=== PATIENT | male | born 1960 | race Caucasian/White ===

== ENCOUNTER → 2020-12-17 | Outpatient (CLI) | payer OTHER ==
[~2020-12-17] MED LIST: ATHLETIC FOOT C30 GM TP; BACTROBAN OINT22 GM EXT; BRILINTA90 MG PO; CLEOCIN HCL300 MG PO; COREG 12.5MG12.5 MG PO; FLOMAX0.4 MG PO; GLIPIZIDE10 MG PO; IBUPROFEN600 MG PO; IBUPROFEN800 MG PO; LIPITOR TAB 2020 MG PO; NORCO 5-325 TA1 EACH PO; PENVEE K 500 M500 MG PO; ROPINIROLE HC0.25 MG PO; TYLENOL W/CODEIN1 EA PO; VIBRAMYCIN100 MG PO; ZOLOFT50 MG PO
== END ==
LOC: HEART 5 11-12 08:45
DX: I20.9 Angina pectoris, unspecified (principal); I08.3 Combined rheumatic disorders of mitral, aortic and tricuspid valves
CPT/HCPCS: 78452; 93306; A9502; J2785

== ENCOUNTER → 2021-01-14 | Outpatient (CLI) | payer OTHER | LOC: SLEEP 15:24 | DX: G47.33 Obstructive sleep apnea (adult) (pediatric) (principal) | CPT/HCPCS: 95810 ==

== ENCOUNTER 2021-03-10 15:26 | Emergency (ER) | payer OTHER ==
[~2021-03-10] VITALS: Ht 182.9 cm; Wt 93.0 kg
== END 2021-03-10 19:16 | disposition home or self-care (01) ==
LOC: ER1 15:26
DX: U07.1 COVID-19 (principal); Z23 Encounter for immunization; Z88.5 Allergy status to narcotic agent; E11.9 Type 2 diabetes mellitus without complications; I25.2 Old myocardial infarction; I10 Essential (primary) hypertension
CPT/HCPCS: 99283; M0243